=== PATIENT | female | born 1975 | race Two or more races ===

== ENCOUNTER 2020-12-01 20:47 | Inpatient (IN) | payer OTHER ==
[~2020-12-01] VITALS: Ht 162.6 cm; Wt 90.7 kg
== END 2020-12-05 13:06 | disposition home or self-care (01) | DRG 760 ==
LOC: ER 20:47 → SEC-K 12-02 09:32 → OB/GYN 12-02 09:32
PROVIDERS: ADMIT Obstetrics & Gynecology; ATTEND Obstetrics & Gynecology
PROC: 30233N1 Transfusion of Nonautologous Red Blood Cells into Peripheral Vein, Percutaneous Approach (ICD-10-PCS; principal; 2020-12-02)
PROC: BU4CZZZ Ultrasonography of Uterus and Ovaries (ICD-10-PCS; 2020-12-02)
DX: N93.8 Other specified abnormal uterine and vaginal bleeding (principal); D62 Acute posthemorrhagic anemia; D64.9 Anemia, unspecified; D25.9 Leiomyoma of uterus, unspecified; F43.22 Adjustment disorder with anxiety; Z20.822 Contact with and (suspected) exposure to COVID-19

== ENCOUNTER 2022-09-07 20:37 | Inpatient (IN) | payer OTHER ==
[~2022-09-07] VITALS: Ht 167.6 cm; Wt 90.7 kg
[2022-09-07] MEDS ORDERED: ANTICONCEPTIVAS (20:54)
[2022-09-07] MEDS ORDERED: IRON236 MG (20:54)
== END 2022-09-09 09:50 | disposition home or self-care (01) | DRG 812 ==
LOC: ER 20:37 → OB/GYN 09-08 08:04
PROVIDERS: ADMIT Obstetrics & Gynecology; ATTEND Obstetrics & Gynecology
PROC: 30233N1 Transfusion of Nonautologous Red Blood Cells into Peripheral Vein, Percutaneous Approach (ICD-10-PCS; principal; 2022-09-08)
PROC: BU4CZZZ Ultrasonography of Uterus and Ovaries (ICD-10-PCS; 2022-09-08)
DX: D50.0 Iron deficiency anemia secondary to blood loss (chronic) (principal); N93.8 Other specified abnormal uterine and vaginal bleeding; D25.1 Intramural leiomyoma of uterus